=== PATIENT | male | born 1985 | race Two or more races ===

== ENCOUNTER 2016-09-16 12:52 | Emergency (ER) | payer MEDICARE, MEDICAID ==
[~2016-09-16] VITALS: Ht 167.6 cm; Wt 117.9 kg
[~2016-09-16 12:52] MED LIST: ALBUTEROL SULF8.5 GM INH; AZITHROMYCIN250 MG ORAL; BACTRIM-DS1 EA PO; CEPHALEXIN500 MG PO; DEXAMETHASONE2 MG PO; IBUPROFEN600 MG PO; NKM; NORCO 5-325 TA1 EACH PO; ONDANSETRON ODT4 MG ORAL; PROMETHAZINE-C118 M1 ORAL; RANITIDINE HCL150 MG ORAL; ZITHROMAX250 MG ORAL
[2016-09-16] MEDS ORDERED: IBUPROFEN600 MG ORAL (13:52)
[2016-09-16] MEDS ORDERED: PROMETHAZINE-D118 ML ORAL (13:52)
[2016-09-16] MEDS ORDERED: Bicillin LA 1.2 Million Units Syr IM ONE (14:00)
[2016-09-16 14:16] VITALS: BP 136/89
--- NOTE | 2016-09-16 22:08 | Emergency Room Report ---
History of Present Illness General Chief Complaint: Upper Respiratory Illness Source: Patient Present Illness HPI The patient is a 31-year-old male presenting for sore throat for the past 2 months. Patient states she has been seen in multiple locations for the same symptoms. Patient states he's experiencing 8/10 sore throat which is worse with swallowing. It is described as a dull ache. Pain does not radiate. The patient is unsure of which medications he has been treated with. The patient denies any cough, chills, N, V, F, rash, SOB Allergies: Coded Allergies: No Known Allergies (Verified Allergy, Unknown, 09/29/08) Patient History Past Medical History: see triage record Pertinent Family History: none Reviewed Nursing Documentation: PMH: Agreed, PSxH: Agreed Nursing Documentation-PMH Past Medical History: No History, Except For Hx Gastrointestinal Problems: No - Tonsillectomy in 1988 Review of Systems All Other Systems: negative except mentioned in HPI Physical Exam Vital Signs Date Time Temp Pulse Resp B/P Pulse Ox O2 Delivery O2 Flow Rate FiO2 09/16/16 13:02 98.4 95 20 135/85 95 Room Air Sp02 EP Interpretation: reviewed, normal General Appearance: no apparent distress, alert, GCS 15, non-toxic Head: normocephalic, atraumatic Eyes: bilateral eye PERRL, bilateral eye normal inspection ENT: no angioedema, normal voice, uvula midline, tonsillar swelling, pharyngeal erythema Neck: full range of motion, supple/symm/no masses Respiratory: chest non-tender, lungs clear, normal breath sounds, speaking full sentences Musculoskeletal: back normal, gait/station normal, normal range of motion, non- tender Neurologic: alert, oriented x3, responsive, motor strength/tone normal, sensory intact, speech normal Psychiatric: judgement/insight normal, memory normal, mood/affect normal, no suicidal/homicidal ideation Skin: normal color, no rash, warm/dry, well hydrated Lymphatic: no adenopathy Medical Decision Making PA Attestation Dr. Sosa is my supervising physician. Patient management was discussed with my supervising physician Diagnostic Impression: Primary Impression: Pharyngitis, acute ER Course The patient is a 31-year-old male sore throat Differential diagnosis include but not limited to pharyngitis, sinusitis, AOM, bronchitis, PNA Physical exam: Vitals within normal limits. Afebrile. No apparent distress HEENT exam: There is bilateral tonsillar edema, erythema. Uvula midline. Moist mucous membranes. There is no cervical lymphadenopathy. Lungs are clear to auscultation bilaterally Skin is warm and dry. No rash The patient is given penicillin IM and will followup with PMD as soon as possible. The patient may need referral to ENT as discussed. ER precautions given Last Vital Signs Date Time Temp Pulse Resp B/P Pulse Ox O2 Delivery O2 Flow Rate FiO2 09/16/16 14:16 92 18 136/89 98 Room Air 09/16/16 14:16 97.5 Status: improved Disposition: HOME, SELF-CARE Condition: Improved Scripts Ibuprofen* (MOTRIN*) 600 Mg Tablet 600 MG ORAL Q8H Y for For Pain, #30 TAB 0 Refills Prov: NASEEM RINCON 09/16/16 D-Methorphan Hb/Prometh Hcl* (PROMETHAZINE-DM SYRUP*) 118 Ml Syrup 5 ML ORAL Q6H Y for For Cough, #118 ML 0 Refills Prov: NASEEM RINCON 09/16/16 Patient Instructions: Upper Respiratory Infection, Adult Additional Instructions: I discussed my findings with the patient. All questions and concerns have been answered. Treatment and medication compliance have been addressed. I advised the patient that they need to follow up with PMD in 3-5 days. Return to ED if pain remains or worsens, cough worsens or remains, you notice blood in your sputum, you notice wheezing, you experience a fever, or if needed for any reason. Patient verbalized understanding of discharge instructions. NASEEM RINCON Sep 16, 2016 22:08
== END 2016-09-16 14:16 | disposition home or self-care (01) ==
LOC: EMR 13:35
DX: J02.9 Acute pharyngitis, unspecified (principal)
CPT/HCPCS: 96372; 99284; J0570; J0561